=== PATIENT | male | born 1945 | race Caucasian/White ===

== ENCOUNTER 2021-02-07 07:55 | Outpatient (REF) | payer OTHER, SELFPAY ==
--- NOTE | ~2021-02-07 | CT_ITS ---
EXAMINATION: CT ABDOMEN AND PELVIS WITH CONTRAST CLINICAL INFORMATION: Recurrent abdominal pain and cramping with eating. COMPARISON: Previous CT of the abdomen and pelvis August 2018. TECHNIQUE: Multidetector volumetric images were obtained from the superior aspect of the liver through the pubic symphysis following administration 85 mL of Omnipaque 350 intravenous contrast. Sagittal and coronal reformatted images were obtained on the technologist's workstation. Oral contrast: No This CT examination was performed using dose optimization techniques as appropriate, variously including the following: *Automated exposure control *Adjustment of mA and/or kV according to patient size (this includes techniques or standardized protocols for targeted exams where dose is matched to indication/reason for exam; i.e. extremities or head) *Use of iterative reconstruction technique DLP: 431 mGy-cm FINDINGS: LUNG BASES: The visualized lung bases are unremarkable. LIVER, GALLBLADDER, AND BILIARY TREE: There is a triangular-shaped 1 cm low-attenuation area in the high central liver axial image 12 series 3 that was not appreciated on previous exam. Previously identified cyst in the right lobe of the liver on August 2018 exam is no longer seen. The gallbladder is normal. There is no biliary duct dilatation. PANCREAS: Unremarkable. SPLEEN: Unremarkable. ADRENAL GLANDS: Unremarkable. KIDNEYS AND URETERS: There are small right renal stones. 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 There is a 1.4 cm high attenuation density adjacent to the left lateral lower bladder wall. It is uncertain whether this represents a bladder stone. Differential would include a calcified phlebolith and oral contrast in a diverticulum. Compared with prior CT scans this probably represents retained oral contrast in a diverticulum as opposed to a bladder stone. GASTROINTESTINAL TRACT: There is stool throughout the colon suggestive of constipation. There is diverticulosis of the colon. No evidence of diverticulitis is seen. There are dilated loops of small bowel seen in the left lateral abdomen similar to previous exam August 2018. ABDOMINAL WALL: No significant hernia is appreciated. LYMPH NODES: Normal. VASCULAR: There is evidence of atherosclerotic disease. PELVIC VISCERA: Not well visualized due to artifact from hip replacements. OSSEOUS STRUCTURES: There are degenerative changes of the spine. There is mild anterior subluxation of L4 with respect to L5 and L5 with respect to S1 that is stable probably related to facet arthritis. CT/CT abdomen pelvis w con IMPRESSION: Constipation and diverticulosis of the colon. Dilated loops of small bowel in the left lateral abdomen. This is similar to 2019 exam and possible internal hernia should be considered. Right renal stones. 1.4 cm high attenuation density in the left pelvis, question bladder stone. This could be better assessed with bladder ultrasound if clinically indicated. Newly appreciated 1 cm liver lesion.
[2021-02-07] MEDS: iohexoL 350 MG/ML 100 ML INFUS..BTL IV (09:03)
== END 2021-02-07 07:56 | disposition home or self-care (01) ==
LOC: HO.CT 07:55
PROVIDERS: Visit Provider Internal Medicine
DX: R10.84 Generalized abdominal pain (principal); R10.13 Epigastric pain
CPT/HCPCS: 74177; Q9967